=== PATIENT | female | born 1960 | race Hispanic/Latino ===

== ENCOUNTER 2022-03-14 11:07 | Inpatient (IN) | payer BC ==
[2022-03-14] MEDS ORDERED: methylPREDNISolone Sod Succinate 125 MG/2 ML INJ IV ONE (11:42)
[2022-03-14] MEDS ORDERED: FAMOTIDINE 20 MG/2 ML INJ IV ONE (11:43)
[2022-03-14] MEDS ORDERED: diphenhydrAMINE 50 MG/ML VIAL IV ONE (11:43)
[2022-03-14 12:28] LABS: Basophils # (Auto) 0.1 K/mm3 (0.0-0.1); Eosinophils # (Auto) 0.1 K/mm3 (0.0-0.4); Lymphocytes # (Auto) 1.3 K/mm3 (1.2-5.4); Lymphocytes % (Auto) 13.7 % (13.4-35.0); Mean Corpuscular HGB Conc 34 % (30-34); Mean Corpuscular Volume 91 fl (79-97); Monocytes # (Auto) 0.6 K/mm3 (0.0-0.8); Platelet Count 167 K/mm3 (140-440); Red Blood Count 4.51 M/mm3 (3.65-5.03); Red Cell Distribution Width 14.9 % (13.2-15.2)
[2022-03-14 12:33] LABS: INR 0.9 (0.87-1.13)
[2022-03-14 12:42] LABS: Creatine Kinase MB 1.6 ng/mL (0.0-4.0)
[2022-03-14 12:43] LABS: Albumin 3.9 g/dL (3.9-5); Calcium 9.5 mg/dL (8.4-10.2)
--- NOTE | 2022-03-14 14:33 | Emergency Department Report ---
<CARLOS LEE - Last Filed: 03/14/22 14:44> ED Shortness of Breath HPI - General Chief Complaint: Dyspnea/Respdistress Stated Complaint: SWOLLEN TOUNGE Time Seen by Provider: 03/14/22 11:40 Source: patient Mode of arrival: Ambulatory Limitations: No Limitations - History of Present Illness Initial Comments: Pt presents with swollen tongue that began this AM at 0300, states unable to swallow or control secretions, pt has difficulty talking in triage, pt states some ELIOT MD Complaint: shortness of breath -: Gradual - Related Data Home Oxygen Therapy: No Home Medications Medication Instructions Recorded Confirmed Last Taken Aspirin EC [Halfprin EC] 81 mg PO QDAY 03/14/22 03/14/22 Unknown Fenofibrate 160 mg PO QDAY 03/14/22 03/14/22 Unknown Losartan/Hydrochlorothiazide 1 each PO QDAY 03/14/22 03/14/22 Unknown [Losartan-Hctz 100-25 mg Tab] Metformin HCl [Metformin HCl ER] 500 mg PO QDAY 03/14/22 03/14/22 Unknown Rosuvastatin Calcium 10 mg PO QDAY 03/14/22 03/14/22 Unknown Allergies Allergy/AdvReac Type Severity Reaction Status Date / Time No Known Allergies Allergy Unverified 03/14/22 11:21 ED Review of Systems Constitutional: denies: chills, fever Eyes: denies: eye pain, eye discharge, vision change ENT: denies: ear pain, throat pain Respiratory: denies: cough, shortness of breath, wheezing Cardiovascular: denies: chest pain, palpitations Endocrine: no symptoms reported Gastrointestinal: denies: abdominal pain, nausea, diarrhea Genitourinary: denies: urgency, dysuria, discharge Musculoskeletal: denies: back pain, joint swelling, arthralgia Skin: denies: rash, lesions Neurological: denies: headache, weakness, paresthesias Psychiatric: denies: anxiety, depression Hematological/Lymphatic: denies: easy bleeding, easy bruising ED Past Medical Hx - Past Medical History Hx Hypertension: Yes Hx Diabetes: Yes Additional medical history: spinal stenosis - Social History Smoking Status: Never Smoker - Medications Home Medications: Home Medications Medication Instructions Recorded Confirmed Last Taken Type Aspirin EC [Halfprin EC] 81 mg PO QDAY 03/14/22 03/14/22 Unknown History Fenofibrate 160 mg PO QDAY 03/14/22 03/14/22 Unknown History Losartan/Hydrochlorothiazide 1 each PO QDAY 03/14/22 03/14/22 Unknown History [Losartan-Hctz 100-25 mg Tab] Metformin HCl [Metformin HCl ER] 500 mg PO QDAY 03/14/22 03/14/22 Unknown History Rosuvastatin Calcium 10 mg PO QDAY 03/14/22 03/14/22 Unknown History ED Physical Exam - General Limitations: No Limitations General appearance: alert, in no apparent distress - Head Head exam: Present: atraumatic, normocephalic - Eye Eye exam: Present: normal appearance - ENT ENT exam: Present: other (tongue swelling ) - Neck Neck exam: Present: normal inspection - Respiratory Respiratory exam: Present: normal lung sounds bilaterally. Absent: respiratory distress - Cardiovascular Cardiovascular Exam: Present: regular rate, normal rhythm. Absent: systolic murmur, diastolic murmur, rubs, gallop - GI/Abdominal GI/Abdominal exam: Present: soft, normal bowel sounds - Extremities Exam Extremities exam: Present: normal inspection - Back Exam Back exam: Present: normal inspection - Neurological Exam Neurological exam: Present: alert, oriented X3 - Psychiatric Psychiatric exam: Present: normal affect, normal mood - Skin Skin exam: Present: warm, dry, intact, normal color. Absent: rash ED Medical Decision Making - Lab Data Result diagrams: 03/14/22 11:55 03/14/22 11:55 ED Disposition Clinical Impression: Tongue swelling, Cervical lymphadenopathy, Sinus tachycardia Angioedema Qualifiers: Encounter type: initial encounter Qualified Code(s): T78.3XXA - Angioneurotic edema, initial encounter Difficulty swallowing Qualifiers: Dysphagia type: unspecified Qualified Code(s): R13.10 - Dysphagia, unspecified Disposition: 09 ADMITTED INPATIENT Condition: Critical <WISAM TARIQ III - Last Filed: 03/14/22 17:04> ED Review of Systems ROS: Stated complaint: SWOLLEN TOUNGE Other details as noted in HPI ED Course Vital Signs 03/14/22 03/14/22 03/14/22 08:50 09:00 11:18 Temperature 98.2 F Pulse Rate 112 H Respiratory 18 Rate Blood Pressure Blood Pressure 138/91 [Left] O2 Sat by Pulse 97 97 94 Oximetry 03/14/22 03/14/22 03/14/22 11:35 11:45 12:01 Temperature Pulse Rate 94 H 95 H 91 H Respiratory 19 24 26 H Rate Blood Pressure 132/91 132/91 Blood Pressure [Left] O2 Sat by Pulse 96 95 95 Oximetry 03/14/22 03/14/22 03/14/22 12:15 12:20 13:15 Temperature Pulse Rate 100 H 90 Respiratory 24 17 Rate Blood Pressure 132/91 132/102 Blood Pressure [Left] O2 Sat by Pulse 96 100 96 Oximetry 03/14/22 03/14/22 03/14/22 14:01 14:15 14:30 Temperature Pulse Rate 84 84 83 Respiratory 22 17 23 Rate Blood Pressure 152/94 152/94 152/94 Blood Pressure [Left] O2 Sat by Pulse 94 95 94 Oximetry 03/14/22 03/14/22 03/14/22 14:45 15:01 15:15 Temperature Pulse Rate 132 H 132 H 132 H Respiratory 28 H 28 H 21 Rate Blood Pressure 152/94 152/94 152/94 Blood Pressure [Left] O2 Sat by Pulse 95 94 95 Oximetry 03/14/22 03/14/22 03/14/22 15:31 15:45 16:01 Temperature Pulse Rate 132 H 134 H 130 H Respiratory 26 H 18 28 H Rate Blood Pressure 152/94 159/90 159/90 Blood Pressure [Left] O2 Sat by Pulse 93 93 94 Oximetry 03/14/22 03/14/22 16:15 16:31 Temperature Pulse Rate 131 H 133 H Respiratory 25 H 29 H Rate Blood Pressure 159/90 159/90 Blood Pressure [Left] O2 Sat by Pulse 94 94 Oximetry - Reevaluation(s) Reevaluation #1: I assumed care of the patient from previous physician. I evaluated the patient. Patient had CT done but is pending. 03/14/22 15:10 Reevaluation #2: Patient having sinus tachycardia. Patient have an EKG done. Patient was given fluids. 03/14/22 16:05 Reevaluation #3: I discussed all results with patient. I discussed plan of care with patient. Patient agrees with plan of care and admission. Patient to be admitted to the hospitalist service. 03/14/22 16:42 - Consultations Consultation #1: Hospitalist consulted for admission. Hospitalist to admit patient. 03/14/22 16:42 ED Medical Decision Making - Lab Data Result diagrams: 03/14/22 11:55 03/14/22 11:55 - EKG Data -: EKG Interpreted by Ar EKG shows normal: sinus rhythm, axis, intervals, QRS complexes, ST-T waves Rate: tachycardia - Radiology Data Radiology results: report reviewed, image reviewed CT NECK WITH INTRAVENOUS CONTRAST AND MULTIPLANAR RECONSTRUCTION CLINICAL HISTORY: swelling TECHNIQUE: 2.5 mm thick contiguous axial scans were obtained from the skull base down to the aortic arch during intravenous contrast administration. In addition to evaluation of axial source images sagittal and coronal multiplanar reconstructions were produced and reviewed for this report. CONTRAST DOSE REPORT: Omnipaque 300: [address] imaging studies performed at this facility utilize dose modulation, iterative reconstruction or weight based dosing, if appropriate, to obtain the lowest achievable rad iation dose. FINDINGS: AIRWAY: The vocal cords are in apposition at the time of this scan. No significant abnormalities are seen along the course of the airway. Nasopharynx, oropharynx, hypopharynx, larynx and visualized portions of the subglottic airway all have an unremarkable appearance. LYMPH NODES: Several lymph nodes are identified. The largest of these are in level 2 bilaterally. These maintain a normal oval shape and contain normal-appearing fatty dior. These are likely reactive lymph nodes. There is no indication of pathological cervical lymphadenopathy. ORAL CAVITY/FLOOR OF MOUTH: No abnormalities are seen in evaluation of the oral cavity and tongue. The floor the mouth has a normal appearance. MAJOR SALIVARY GLANDS: The parotid and submandibular salivary glands have a normal appearance. NASAL CAVITY AND PARANASAL SINUSES: Evaluation of the nasal cavity reveals no abnormality. The paranasal sinuses are free from inflammatory mucosal disease. ORBITS:No abnormalities of the visualized portions of the orbits are identified. Globes, optic nerves, extraocular muscles and lacrimal glands have an unremarkable appearance. THYROID GLAND: The thyroid gland is normal in size and homogeneous in attenuation. No focal thyroid lesions are identified. TEMPORAL BONES:Mastoid air cells are normally pneumatized. CRANIOCERVICAL JUNCTION:No significant abnormality. CERVICAL SPINE: Degenerative changes are noted at the C6-7 level where loss of disc height and anterior osteophyte formation are observed. LUNG APICES: Evaluation of the lung apices reveals no abnormality. There is no indication of lung nodule or infiltrate. The visualized portions of the superior mediastinum have an unremarkable appearance. CONTRAST ADMINISTRATION: Enhancement of normal vascular structures is demonstrated. No areas of abnormal contrast enhancement are identified. IMPRESSION: 1. No significant abnormalities are identified on CT neck with intravenous contrast. - Medical Decision Making Patient is a 61-year-old female that presents emergency room for tongue swelling and difficulty swallowing and mild shortness of breath. Patient was initially seen by another ER physician and signed out to me. Patient had a pending CT scan to follow-up on. Patient CT shows no acute findings and no infection was in the thumb region. Patient's tongue is improved but is still enlarged and had patient having difficulty swallowing and mild shortness of breath due to the tongue size. Patient was treated with Benadryl, Pepcid and steroids. Patient had minimal improvement. Patient CT shows cervical lymphadenopathy. Patient after the CT went into a sinus tachycardia. Patient had an EKG done which showed a sinus tachycardia. Patient was given clindamycin for the lymphadenopathy and fluids for the tachycardia. Patient admitted to the inpatient service for observation. Critical care time documented due to the multiple reassessments, prolonged time at the bedside, interpretation of diagnostics and labs. - Differential Diagnosis Angioedema, tongue swelling, difficulty swallowing, infection Critical Care Time: Yes Critical care time in (mins) excluding proc time.: 35 Critical care attestation.: If time is entered above; I have spent that time in minutes in the direct care of this critically ill patient, excluding procedure time. Critical Care Time: 35 minutes ED Disposition Is pt being admited?: Yes Does the pt Need Aspirin: No Time of Disposition: 17:04
--- NOTE | 2022-03-14 15:07 | Cat Scan Report ---
CT NECK WITH INTRAVENOUS CONTRAST AND MULTIPLANAR RECONSTRUCTION CLINICAL HISTORY: swelling TECHNIQUE: 2.5 mm thick contiguous axial scans were obtained from the skull base down to the aortic arch during intravenous contrast administration. In addition to evaluation of axial source images sagittal and co camilla multiplanar reconstructions were produced and reviewed for this report. CONTRAST DOSE REPORT: Omnipaque 300: [address] imaging studies performed at this facility utilize dose modulation, iterative reconstruction o r weight based dosing, if appropriate, to obtain the lowest achievable radiation dose. FINDINGS: AIRWAY: The vocal cords are in apposition at the time of this scan. No significant abnormalities are seen along the course of the airway. Nasopharynx, oropharynx, hypopharynx, larynx and visualized port ions of the subglottic airway all have an unremarkable appearance. LYMPH NODES: Several lymph nodes are identified. The largest of these are in level 2 bilaterally. The se maintain a normal oval shape and contain normal-appearing fatty dior. These are likely reactive ly mph nodes. There is no indication of pathological cervical lymphadenopathy. ORAL CAVITY/FLOOR OF MOUTH: No abnormalities are seen in evaluation of the oral cavity and tongue. Th e floor the mouth has a normal appearance. MAJOR SALIVARY GLANDS: The parotid and submandibular salivary glands have a normal appearance. NASAL CAVITY AND PARANASAL SINUSES: Evaluation of the nasal cavity reveals no abnormality. The parana jay sinuses are free from inflammatory mucosal disease. ORBITS:No abnormalities of the visualized portions of the orbits are identified. Globes, optic nerves , extraocular muscles and lacrimal glands have an unremarkable appearance. THYROID GLAND: The thyroid gland is normal in size and homogeneous in attenuation. No focal thyroid l esions are identified. TEMPORAL BONES:Mastoid air cells are normally pneumatized. CRANIOCERVICAL JUNCTION:No significant abnormality. CERVICAL SPINE: Degenerative changes are noted at the C6-7 level where loss of disc height and anteri or osteophyte formation are observed. LUNG APICES: Evaluation of the lung apices reveals no abnormality. There is no indication of lung nod ule or infiltrate. The visualized portions of the superior mediastinum have an unremarkable appearanc e. CONTRAST ADMINISTRATION: Enhancement of normal vascular structures is demonstrated. No areas of abnor mal contrast enhancement are identified. IMPRESSION: 1. No significant abnormalities are identified on CT neck with intravenous contrast. Signer Name: Yash Emerson MD Signed: 03/14/2022 3:02 PM Workstation Name: [id number]
[2022-03-14] MEDS ORDERED: SODIUM CHLORIDE 0.9% 1000 ML 1,000 ML ONE (15:48)
[2022-03-14] MEDS ORDERED: SODIUM CHLORIDE 0.9% 1000 ML 1,000 ML IV ONE (16:47)
[2022-03-14] MEDS ORDERED: CLINDAMYCIN 600 MG/50 mL 600 MG/50 ML BAG IV ONE (16:47)
--- NOTE | 2022-03-14 17:03 | History and Physical Report ---
History of Present Illness Chief complaint: My tongue swollen History of present illness: 61 YO Female with Obesity Hypoventilation Syndrome, HTN, DM, Metabolic Sydnrome, Spinal Stenosis presents to ED for evaluation. Patient reports my tongue is swollen". Patient reports that she has experienced acute onset swelling to her tongue that began approximately 0300 hours which awaken her from sleep. EMS was notified and upon arrival the patient was found to be in distress and subsequent transported to [facility] for further care and evaluation of the aforementioned symptoms. The patient was seen and evaluated in the emergency department. All lab and imaging studies reviewed. Patient was found to have angioedema with swelling in the oropharynx as well as the tongue. Patient was unable to control her secretions and was also unable to speak in complete sentences due to the swelling of the oropharyngeal space. Patient admitted to medical floor due to increased risk of worsening symptoms as well as for medical stabilization. Patient initiated on IV steroid therapy and supportive care. Patient is unable to provide further history due to oropharyngeal swelling. Patient uses gestures to deny fever, chills, chest pain, palpitation, productive cough, skin rash, recent contact, known exposure to COVID-19. No prior admission for review. All medication listed at time of admission has been reconciled. Advanced care planning conducted in ED. Past History Past Medical History: diabetes, hypertension, hyperlipidemia Past Surgical History: No surgical history, Other (Reviewed) Social history: . denies: smoking, alcohol abuse, prescription drug abuse Family history: diabetes, hypertension Medications and Allergies Allergies Allergy/AdvReac Type Severity Reaction Status Date / Time No Known Allergies Allergy Unverified 03/14/22 11:21 Home Medications Medication Instructions Recorded Confirmed Last Taken Type Aspirin EC [Halfprin EC] 81 mg PO QDAY 03/14/22 03/14/22 Unknown History Fenofibrate 160 mg PO QDAY 03/14/22 03/14/22 Unknown History Losartan/Hydrochlorothiazide 1 each PO QDAY 03/14/22 03/14/22 Unknown History [Losartan-Hctz 100-25 mg Tab] Metformin HCl [Metformin HCl ER] 500 mg PO QDAY 03/14/22 03/14/22 Unknown History Rosuvastatin Calcium 10 mg PO QDAY 03/14/22 03/14/22 Unknown History Active Meds: Active Medications Clindamycin HCl (Cleocin 600 Mg/50 Ml) 600 mg in 50 mls @ 100 mls/hr IV ONCE ONE; Protocol Stop: 03/14/22 17:16 Sodium Chloride (Nacl 0.9% 1000 Ml) 1,000 mls @ 999 mls/hr IV BOLUS ONE Stop: 03/14/22 17:47 Review of Systems Constitutional: no weight loss, no weight gain, no fever, no chills Ears, nose, mouth and throat: dysphagia, hoarseness, swelling in throat, neck fullness/pressure, no ear pain, no ear discharge, no tinnitis Breasts: no change in shape, no swelling, no mass Cardiovascular: no chest pain, no orthopnea, no rapid/irregular heart beat, no syncope, no lightheadedness Respiratory: no cough, no cough with sputum, no hemoptysis, no shortness of breath Gastrointestinal: no abdominal pain, no diarrhea, no constipation, no change in bowel habits, no hematemesis Genitourinary Female: no pelvic pain, no flank pain, no dysuria, no urinary frequency, no urgency Rectal: no pain, no incontinence, no bleeding Musculoskeletal: no neck stiffness, no arm numbness/tingling, no low back pain, no shooting leg pain, no leg numbness/tingling, no redness of joints Integumentary: no rash, no pruritis, no redness, no sores, no wounds Neurological: no head injury, no paralysis, no weakness, no numbness, no seiz ures, no tremors Psychiatric: no anxiety, no memory loss, no change in sleep habits, no sleep disturbances, no insomnia, no hypersomnia, no change in appetite, no change in libido Endocrine: no cold intolerance, no heat intolerance, no polyphagia, no excessive thirst, no nocturia, no excessive sweating Hematologic/Lymphatic: no easy bruising, no easy bleeding Allergic/Immunologic: no urticaria, no allergic rhinitis Exam - Constitutional Vitals: Temp Pulse Resp BP Pulse Ox 98.2 F 133 H 29 H 159/90 94 03/14/22 11:18 03/14/22 16:31 03/14/22 16:31 03/14/22 16:31 03/14/22 16:31 General appearance: Present: mild distress - EENT Eyes: Present: PERRL ENT: hearing intact, oropharyngeal erythema, other (Oropharyngeal edema) - Neck Neck: Present: supple, normal ROM - Respiratory Respiratory effort: normal Respiratory: bilateral: CTA - Cardiovascular Rhythm: other (Tachycardia) Heart Sounds: Present: S1 & S2. Absent: rub, click - Extremities Extremities: pulses symmetrical, No edema Peripheral Pulses: within normal limits - Abdominal General gastrointestinal: Present: soft, non-tender, non-distended, normal bowel sounds Female genitourinary: Present: normal - Integumentary Integumentary: Present: clear, warm, dry - Musculoskeletal Musculoskeletal: gait normal, strength equal bilaterally - Psychiatric Psychiatric: cooperative - Neurologic Neurologic: CNII-XII intact, moves all extremities HEART Score - HEART Score Troponin: Troponin T < 0.010 ng/mL (0.00-0.029) 03/14/22 11:55 Results - Labs CBC & Chem 7: 03/14/22 11:55 03/14/22 11:55 Labs: Abnormal lab results 03/14/22 03/14/22 Range/Units 11:55 11:55 Seg Neutrophils % 78.3 H (40.0-70.0) % Glucose 182 H (65-100) mg/dL Assessment and Plan - Patient Problems (1) Angioedema Current Visit: Yes Status: Acute Qualifiers: Encounter type: initial encounter Qualified Code(s): T78.3XXA - Angioneurotic edema, initial encounter Plan to address problem: Supportive care, Solu-Medrol, Benadryl, continue supportive care. Patient is at high risk for airway compromise. IV steroid therapy. (2) Obesity hypoventilation syndrome Current Visit: Yes Status: Acute Plan to address problem: Balanced diet, increase physical activity discharge, outpatient pulmonary follow-up for sleep study. Noninvasive positive pressure ventilation as clinically indicated. (3) Diabetes Current Visit: Yes Status: Acute Plan to address problem: Consistent carbohydrate diet, Accu-Chek, insulin protocol, hypoglycemia protocol. (4) Hypertension Current Visit: Yes Status: Acute Qualifiers: Hypertension type: primary hypertension Qualified Code(s): I10 - Essential (primary) hypertension Plan to address problem: Monitor blood pressure every shift, continue medical management. (5) Metabolic syndrome Current Visit: Yes Status: Acute Plan to address problem: Low-cholesterol diet, blood glucose control, balanced diet, increase physical activity discharge, weight reduction. (6) DVT prophylaxis Current Visit: Yes Status: Acute Plan to address problem: SCD to bilateral lower extremities while in bed (7) Advance care planning Current Visit: Yes Status: Acute Plan to address problem: Disease education done, care plan discussed, diagnoses discussed, prognosis discussed, patient is full code. Patient knowledges understanding and agreement with care plan, +30 minutes. (8) Preventative health care Current Visit: Yes Status: Acute Plan to address problem: Patient counseled on rate reduction, balanced diet, outpatient follow-up with primary care physician for all age and risk factor appropriate screening test, outpatient bariatric surgery evaluation, +30 minutes.
[2022-03-14] MEDS ORDERED: ACETAMINOPHEN 325 MG TAB PO PRN (17:46)
[2022-03-14] MEDS ORDERED: ONDANSETRON 4 MG/2 ML INJ IV PRN (17:46)
[2022-03-14] MEDS ORDERED: ALBUTEROL 2.5 MG/3 ML NEBU IH PRN (17:46)
[2022-03-14] MEDS ORDERED: HYDROmorphone 0.5 MG/0.5 ML INJ IV PRN (17:46)
[2022-03-14] MEDS ORDERED: oxyCODONE /ACETAMINOPHEN 5-325MG TAB PO PRN (17:46)
[2022-03-14] MEDS ORDERED: SODIUM CHLORIDE 0.9% 1000 ML 1,000 ML IV SCH (18:00)
[2022-03-14] MEDS: methylPREDNISolone Sod Succinate 40 MG/1 ML INJ IV SCH (23:06)
[2022-03-15] MEDS: methylPREDNISolone Sod Succinate 40 MG/1 ML INJ IV SCH ×3 (05:21→21:56)
[2022-03-15] MEDS: INSULIN LISPRO 100 UNIT/ML SUB-Q SCH ×6 (08:30→22:03)
--- NOTE | 2022-03-15 09:25 | Progress Note ---
Assessment and Plan Assessment and plan: 61 YO Female with Obesity Hypoventilation Syndrome, HTN, DM, Metabolic Sydnrome, Spinal Stenosis presents to ED for evaluation. Patient reports my tongue is swollen". Patient reports that she has experienced acute onset swelling to her tongue that began approximately 0300 hours which awaken her from sleep. EMS was notified and upon arrival the patient was found to be in distress and subsequent transported to [facility] for further care and evaluation of the aforementioned sympt oms. The patient was seen and evaluated in the emergency department. All lab and imaging studies reviewed. Patient was found to have angioedema with swelling in the oropharynx as well as the tongue. Patient was unable to control her secretions and was also unable to speak in complete sentences due to the swelling of the oropharyngeal space. Patient admitted to medical floor due to increased risk of worsening symptoms as well as for medical stabilization. Patient initiated on IV steroid therapy and supportive care. Patient is unable to provide further history due to oropharyngeal swelling. Patient uses gestures to deny fever, chills, chest pain, palpitation, productive cough, skin rash, recent contact, known exposure to COVID-19. No prior admission for review. All medication listed at time of admission has been reconciled. Advanced care planning conducted in ED. (1) Angioedema Current Visit: Yes Status: Acute Qualifiers: Encounter type: initial encounter Qualified Code(s): T78.3XXA - Angioneurotic edema, initial encounter Plan to address problem: Supportive care, Solu-Medrol, Benadryl, continue supportive care. Patient is at high risk for airway compromise. IV steroid therapy. Swelling resolved Patient can able to eat (2) Obesity hypoventilation syndrome Current Visit: Yes Status: Acute Plan to address problem: Balanced diet, increase physical activity discharge, outpatient pulmonary follow-up for sleep study. Noninvasive positive pressure ventilation as clinically indicated. (3) Diabetes Current Visit: Yes Status: Acute Plan to address problem: Consistent carbohydrate diet, Accu-Chek, insulin protocol, hypoglycemia protocol. (4) Hypertension Current Visit: Yes Status: Acute Qualifiers: Hypertension type: primary hypertension Qualified Code(s): I10 - Essential (primary) hypertension Plan to address problem: Monitor blood pressure every shift, continue medical management. (5) Metabolic syndrome Current Visit: Yes Status: Acute Plan to address problem: Low-cholesterol diet, blood glucose control, balanced diet, increase physical activity discharge, weight reduction. (6) DVT prophylaxis Current Visit: Yes Status: Acute Plan to address problem: SCD to bilateral lower extremities while in bed (7) Advance care planning Current Visit: Yes Status: Acute Plan to address problem: Disease education done, care plan discussed, diagnoses discussed, prognosis discussed, patient is full code. Patient knowledges understanding and agreement with care plan, +30 minutes. (8) Preventative health care Current Visit: Yes Status: Acute Plan to address problem: Patient counseled on rate reduction, balanced diet, outpatient follow-up with primary care physician for all age and risk factor appropriate screening test, outpatient bariatric surgery evaluation, +30 minutes. History Interval history: Patient was seen and evaluated this morning Swelling is getting better Patient does not have any difficulty of breathing or swallowing. Hospitalist Physical - Physical exam Narrative exam: Not in cardiopulmonary distress. Tongue and facial swelling resolved. The patient appeared well nourished and normally developed. Vital signs as documented. Head exam is unremarkable. No scleral icterus . Neck is without jugular venous distension, thyromegaly, or carotid bruits. Lungs are clear to auscultation. Cardiac exam reveals regular rate and Rhythm. Abdominal exam reveals normal bowel sounds, nontender, no organomegaly. Extremities are nonedematous and both femoral and pedal pulses are normal. CLASSROOM INSTRUCTOR: Alert and oriented 3. No focal weakness. - Constitutional Vitals: Temp Pulse Resp BP Pulse Ox 97.7 F 72 18 144/88 96 03/15/22 05:23 03/15/22 05:23 03/15/22 05:23 03/15/22 05:23 03/15/22 05:23 General appearance: Present: mild distress HEART Score - HEART Score Troponin: Troponin T < 0.010 ng/mL (0.00-0.029) 03/14/22 11:55 Results - Labs CBC & Chem 7: 03/14/22 11:55 03/15/22 05:01 Labs: Laboratory Last Values WBC 9.2 K/mm3 (4.5-11.0) 03/14/22 11:55 RBC 4.51 M/mm3 (3.65-5.03) 03/14/22 11:55 Hgb 14.0 gm/dl (10.1-14.3) 03/14/22 11:55 Hct 41.0 % (30.3-42.9) 03/14/22 11:55 MCV 91 fl (79-97) 03/14/22 11:55 MCH 31 pg (28-32) 03/14/22 11:55 MCHC 34 % (30-34) 03/14/22 11:55 RDW 14.9 % (13.2-15.2) 03/14/22 11:55 Plt Count 167 K/mm3 (140-440) 03/14/22 11:55 Lymph % (Auto) 13.7 % (13.4-35.0) 03/14/22 11:55 [place] % (Auto) 6.0 % (0.0-7.3) 03/14/22 11:55 Eos % (Auto) 1.0 % (0.0-4.3) 03/14/22 11:55 Baso % (Auto) 1.0 % (0.0-1.8) 03/14/22 11:55 Lymph # (Auto) 1.3 K/mm3 (1.2-5.4) 03/14/22 11:55 [place] # (Auto) 0.6 K/mm3 (0.0-0.8) 03/14/22 11:55 Eos # (Auto) 0.1 K/mm3 (0.0-0.4) 03/14/22 11:55 Baso # (Auto) 0.1 K/mm3 (0.0-0.1) 03/14/22 11:55 Seg Neutrophils % 78.3 % (40.0-70.0) H 03/14/22 11:55 Seg Neutrophils # 7.2 K/mm3 (1.8-7.7) 03/14/22 11:55 PT 13.1 Sec. (12.2-14.9) 03/14/22 11:55 INR 0.90 (0.87-1.13) 03/14/22 11:55 Sodium 138 mmol/L (137-145) 03/15/22 05:01 Potassium 4.4 mmol/L (3.6-5.0) 03/15/22 05:01 Chloride 106.5 mmol/L (98-107) 03/15/22 05:01 Carbon Dioxide 20 mmol/L (22-30) L 03/15/22 05:01 Anion Gap 16 mmol/L 03/15/22 05:01 BUN 18 mg/dL (7-17) H 03/15/22 05:01 Creatinine 1.2 mg/dL (0.6-1.2) 03/15/22 05:01 Estimated GFR 45 ml/min 03/15/22 05:01 BUN/Creatinine Ratio 15 % 03/15/22 05:01 Glucose 293 mg/dL (65-100) H 03/15/22 05:01 POC Glucose 275 mg/dL (70-105) H 03/15/22 07:16 Calcium 9.0 mg/dL (8.4-10.2) 03/15/22 05:01 Total Bilirubin 0.50 mg/dL (0.1-1.2) 03/14/22 11:55 AST 25 units/L (5-40) 03/14/22 11:55 ALT 28 units/L (7-56) 03/14/22 11:55 Alkaline Phosphatase 63 units/L (35-129) 03/14/22 11:55 Total Creatine Kinase 75 units/L (30-135) 03/14/22 11:55 CK-MB (CK-2) 1.6 ng/mL (0.0-4.0) 03/14/22 11:55 CK-MB (CK-2) Rel Index 2.1 (0-4) 03/14/22 11:55 Troponin T < 0.010 ng/mL (0.00-0.029) 03/14/22 11:55 Total Protein 7.5 g/dL (6.3-8.2) 03/14/22 11:55 Albumin 3.9 g/dL (3.9-5) 03/14/22 11:55 Albumin/Globulin Ratio 1.1 % 03/14/22 11:55 Pizano/IV: Voiding Method Toilet Active Medications - Current Medications Current Medications: Generic Name Dose Route Start Last Admin Trade Name Freq PRN Reason Stop Dose Admin Acetaminophen 650 mg 03/14/22 17:46 Acetaminophen 325 Mg Tab PO Q4H PRN Pain MILD(1-3)/Fever >100.5/KU Albuterol 2.5 mg 03/14/22 17:46 Albuterol 2.5 Mg/3 Ml Nebu IH Q4HRT PRN Shortness Of Breath Aspirin 81 mg 03/15/22 10:00 Aspirin Ec 81 Mg Tab PO QDAY REZA Atorvastatin Calcium 20 mg 03/14/22 22:00 03/14/22 23:06 Atorvastatin 20 Mg Tab PO 20 mg QHS REZA Administration Fenofibrate 145 mg 03/15/22 10:00 Fenofibrate 145 Mg Tab PO QDAY REZA Hydrochlorothiazide 25 mg 03/15/22 10:00 Hydrochlorothiazide 25 Mg Tab PO QDAY REZA Hydromorphone HCl 0.5 mg 03/14/22 17:46 Hydromorphone 0.5 Mg/0.5 Ml Inj IV Q13H PRN Pain , Severe (7-10) Sodium Chloride 1,000 mls @ 42 mls/hr 03/14/22 18:00 03/14/22 23:10 Nacl 0.9% 1000 Ml IV 42 mls/hr DIRECT REZA Administration Insulin Human Lispro 0 unit 03/15/22 07:30 Insulin Lispro 100 Unit/Ml SUB-Q ACHS [facility] Protocol Losartan Potassium 100 mg 03/15/22 10:00 Losartan 50 Mg Tab PO QDAY REZA Methylprednisolone Sodium Succinate 40 mg 03/14/22 22:00 03/15/22 05:21 Methylprednisolone Sod Succinate 40 Mg/1 Ml Inj IV 40 mg Q8HR REZA Administration Ondansetron HCl 4 mg 03/14/22 17:46 Ondansetron 4 Mg/2 Ml Inj IV Q8H PRN Nausea And Vomiting Oxycodone/Acetaminophen 1 tab 03/14/22 17:46 Oxycodone /Acetaminophen 5-325mg Tab PO Q16H PRN Pain, Moderate (4-6) Sodium Chloride 10 ml 03/14/22 22:00 03/14/22 23:08 Sodium Chloride 0.9% 10 Ml Flush Syringe IV 10 ml BID REZA Administration Sodium Chloride 10 ml 03/14/22 17:46 Sodium Chloride 0.9% 10 Ml Flush Syringe IV PRN PRN LINE FLUSH
[2022-03-15] MEDS ORDERED: ROSUVASTATIN CALCIUM 10 MG PO SCH (10:00)
[2022-03-15] MEDS ORDERED: NON-FORMULARY EACH (Losartan/Hydrochlorothiazide [Losartan-Hctz 100-25 Mg Tab] 1 EACH Tabl PO SCH (10:00)
[2022-03-15] MEDS: LOSARTAN 50 MG TAB PO SCH (10:53)
[2022-03-15] MEDS: ASPIRIN EC 81 MG TAB PO SCH (10:53)
[2022-03-15] MEDS: FENOFIBRATE 145 MG TAB PO SCH (10:53)
[2022-03-15] MEDS: hydroCHLOROthiazide 25 MG TAB PO SCH (10:53)
[2022-03-15] MEDS ORDERED: INSULIN LISPRO 100 UNIT/ML SUB-Q ONE (13:30)
[2022-03-16] MEDS: methylPREDNISolone Sod Succinate 40 MG/1 ML INJ IV SCH ×2 (06:06→13:11)
[2022-03-16 08:25] LABS: Calcium 9.3 mg/dL (8.4-10.2)
[2022-03-16] MEDS: INSULIN LISPRO 100 UNIT/ML SUB-Q SCH ×4 (08:30→12:18)
[2022-03-16] MEDS ORDERED: INSULIN GLARGINE 100 UNITS/ML SUB-Q SCH (09:00)
[2022-03-16] MEDS: FENOFIBRATE 145 MG TAB PO SCH (09:17)
[2022-03-16] MEDS: hydroCHLOROthiazide 25 MG TAB PO SCH (09:17)
[2022-03-16] MEDS: LOSARTAN 50 MG TAB PO SCH (09:17)
[2022-03-16] MEDS: ASPIRIN EC 81 MG TAB PO SCH (09:17)
--- NOTE | 2022-03-16 09:39 | Discharge Summary ---
Providers - Providers Date of Admission: 03/14/22 17:46 Date of discharge: 03/16/22 Attending physician: LESLI ARMENDARIZ MD Primary care physician: JEN CORNELL MD Hospitalization Reason for admission: Angioedema, diabetes with hyperglycemia Condition: Stable Hospital course: 61 YO Female with Obesity Hypoventilation Syndrome, HTN, DM, Metabolic Sydnrome, Spinal Stenosis presents to ED for evaluation. Patient reports my tongue is swollen". Patient reports that she has experienced acute onset swelling to her tongue that began approximately 0300 hours which awaken her from sleep. EMS was notified and upon arrival the patient was found to be in distress and subsequent transported to [facility] for further care and evaluation of the aforementioned symptoms. The patient was seen and evaluated in the emergency department. All lab and imaging studies reviewed. Patient was found to have angioedema with swelling in the oropharynx as well as the tongue. Patient was unable to control her secretions and was also unable to speak in complete sentences due to the swelling of the oropharyngeal space. Patient admitted to medical floor due to increased risk of worsening symptoms as well as for medical stabilization. Patient initiated on IV steroid therapy and supportive care. Patient is unable to provide further history due to oropharyngeal swelling. Patient uses gestures to deny fever, chills, chest pain, palpitation, productive cough, skin rash, recent contact, known exposure to COVID-19. No prior admission for review. All medication listed at time of admission has been reconciled. Advanced care planning conducted in ED. Hospital course Patient was admitted to the hospital and was started with IV Solu-Medrol, Benadryl and patient's swelling completely resolved. No shortness of breath. I observed with for 48 hours and discharged home in a stable condition. Patient has diabetes and hyperglycemia worsened with steroids and advised to take her metformin. Patient said she has A1c done by her primary care physician a week ago and waiting for results. Diabetic medications can be arranged based on that by her PCP. Losartan was continued. No cause was identified for angioedema. At the time of discharge patient was given steroids, Benadryl and famotidine. Management plan was discussed in detail with the patient. Patient advised to come back immediately to the ER if she have any swelling of the tongue again. No respiratory compromise. Patient states she uses CPAP at night. Patient was hemodynamically stable as of discharge. Disposition: HOME / SELF CARE / HOMELESS Final Discharge Diagnosis (Prints w/discharge instructions): Angioedema. Hypertension. Diabetes Time spent for discharge: 35-minutes - Discharge Diagnoses (1) Angioedema Status: Acute Qualifiers: Encounter type: initial encounter Qualified Code(s): T78.3XXA - Angioneurotic edema, initial encounter (2) Diabetes Status: Acute Qualifiers: Diabetes mellitus type: type 2 Diabetes mellitus skilled nursing insulin use: without filler leaf cutter long use Diabetes mellitus complication status: without complication Qualified Code(s): E11.9 - Type 2 diabetes mellitus without complications (3) Hypertension Status: Acute Qualifiers: Hypertension type: primary hypertension Qualified Code(s): I10 - Essential (primary) hypertension (4) Metabolic syndrome Status: Acute Core Measure Documentation - Palliative Care Palliative Care/ Comfort Measures: Not Applicable - Core Measures Any of the following diagnoses?: none Exam - Physical Exam Narrative exam: Not in cardiopulmonary distress. Tongue and facial swelling resolved. The patient appeared well nourished and normally developed. Vital signs as documented. Head exam is unremarkable. No scleral icterus . Neck is without jugular venous distension, thyromegaly, or carotid bruits. Lungs are clear to auscultation. Cardiac exam reveals regular rate and Rhythm. Abdominal exam reveals normal bowel sounds, nontender, no organomegaly. Extremities are nonedematous and both femoral and pedal pulses are normal. RNFA: Alert and oriented 3. No focal weakness. - Constitutional Vitals: Temp Pulse Resp BP Pulse Ox 97.5 F L 79 18 163/101 98 03/16/22 08:58 03/16/22 08:58 03/16/22 08:58 03/16/22 08:58 03/16/22 08:58 Plan Activity: no restrictions Weight Bearing Status: Full Weight Bearing Diet: diabetic Follow up with: JEN CORNELL MD [Primary Care Provider] - 3-5 Days Prescriptions: Famotidine [Acid-Pep] 20 mg PO BID #28 diphenhydrAMINE [Benadryl CAP] 25 mg PO Q6HR PRN #20 capsule PRN Reason: Congestion Prednisone [predniSONE 10 mg (6-Day Pack, 21 Tabs)] 10 mg PO .TAPER #1
[2022-03-16 12:23] VITALS: BP 154/99
[2022-03-16] MEDS ORDERED: INSULIN LISPRO 100 UNIT/ML SUB-Q ONE (13:00)
--- NOTE | 2022-03-17 09:56 | Electrocardiograph Report ---
[facility] Test Date: 2022-03-14 Test Time: 16:28:04 Pat Name: ANI ARCE Department: Room: A481 1 Gender: F [employer]xtures: NANDA : 1960 Requested By: CARLOS LEE Order Number: [id number] Reading MD: Minh Infante Measurements Intervals [place] Rate: 134 P: -72 [place]: 141 QRS: -14 QRSD: 100 T: 1 QT: 329 QTc: 492 Interpretive Statements Sinus or ectopic atrial tachycardia Low voltage, precordial leads No previous ECG available for comparison Electronically Signed On 03-17-2022 9:56:17 EDT by Minh Infante
== END 2022-03-16 17:30 | disposition home or self-care (01) | DRG 916 ==
LOC: ED 11:07 → 4A 17:46
PROVIDERS: ADMIT Internal Medicine; ATTEND Internal Medicine
DX: T78.3XXA Angioneurotic edema, initial encounter (principal); E66.2 Morbid (severe) obesity with alveolar hypoventilation; Z68.44 Body mass index [BMI] 60.0-69.9, adult; I10 Essential (primary) hypertension; E11.9 Type 2 diabetes mellitus without complications; E78.5 Hyperlipidemia, unspecified; E88.81 Metabolic syndrome and other insulin resistance
CPT/HCPCS: 36415; 70491; 80048; 80053; 82550; 82553; 82962; 84484; 85025; 85610; 93005; 94760; G0378; J3490; J7502; Q9967; J1170; J1200; J1815; J2920; J2930; J7030